=== PATIENT | female | born 1995 | race Two or more races ===

== ENCOUNTER 2017-03-12 08:59 | Day surgery (SDC) | payer OTHER ==
[2017-03-10 11:26] VITALS: BMI 36.0
[~2017-03-12 08:59] MED LIST: LACTATED RINGERS 1,000 ML IV SCH
[2017-03-12 09:23] VITALS: TEMP 98.5
[2017-03-12] MEDS ORDERED: LIDOCAINE 1% 20 ML VIAL (10MG/ML) FOR IV START INTRADERMA ONE (09:30)
[2017-03-12] MEDS ORDERED: LIDOCAINE 1% INJ 10MG/ML (20 ML MDV) ONE (09:59)
[2017-03-12] MEDS ORDERED: PROPOFOL 10 MG/ML 20 ML VIAL IV ONE (09:59)
[2017-03-12 10:23] VITALS: RESP 16
--- NOTE | 2017-03-12 10:26 | P.PCN ---
Date of Procedure: 03/12/17 Procedure(s) Performed: Procedure: Esophagogastroduodenoscopy and biopsy. Preoperative diagnosis: Chronic reflux symptoms with intermittent symptoms despite medical therapy. Postoperative diagnosis: 1. Small sliding hiatal hernia with low-grade distal esophagitis. 2. Mild antral gastritis. 3. Multiple biopsies obtained from the duodenum, antrum and esophagus. Preparation sedation: Were provided by anesthesia. Brief clinical history: The patient is a 21-year-old female who was evaluated in the office last month for chronic reflux of more than 6 years duration. She has been on treatment all through those years and gets symptoms at times despite being on treatment. She has no alarm symptoms. This would be her first endoscopic evaluation to assess the degree of her esophagitis and rule out complicated reflux disease or other pathology. Procedure: With the patient on her left lateral decubitus position and after informed consent and adequate sedation, I passed the Olympus-GIF 160 video upper endoscope through the cricopharyngeus down the esophagus. GE junction was around 37 cm from the incisors and there was a small sliding hiatal hernia. The esophagus showed short superficial erosion terminating at the level of the GE junction consistent with LA grade A distal esophagitis but there were no strictures or Staley's esophagus. The endoscope was then passed into the stomach which was insufflated with air and inspected in detail including the retroflex view in the cardia. There was some mottling and erythema in the antrum but no ulcers or erosions. Pyloric channel, duodenal bulb, post bulbar area and descending duodenum appeared within normal limits. Because of her symptoms, I obtained biopsies from the duodenum, antrum and esophagus then the endoscope was withdrawn. The patient tolerated the procedure well. Plan: The patient was reassured. Will await biopsy results. She will follow- up in the office later this month as planned and we would keep you updated on her progress.
[2017-03-12 10:42] VITALS: BP 117/67; PULSE 73
== END 2017-03-12 11:02 | disposition home or self-care (01) ==
LOC: ORWHC2ENDO 08:59
DX: K29.50 Unspecified chronic gastritis without bleeding (principal); K22.8 Other specified diseases of esophagus; K44.9 Diaphragmatic hernia without obstruction or gangrene; K21.0 Gastro-esophageal reflux disease with esophagitis; Z79.899 Other long term (current) drug therapy; Z88.8 Allergy status to other drugs, medicaments and biological substances
CPT/HCPCS: 81025; 88305; 88342; 43239; J2001; J2704